=== PATIENT | male | born 1995 | race Two or more races ===

== ENCOUNTER 2022-01-21 10:21 | Emergency (ER) | payer SELFPAY ==
[~2022-01-21] VITALS: Ht 160 cm; Wt 63.0 kg
[2022-01-21] MEDS ORDERED: ONDANSETRON HCL 4MG/2ML INJ IV STA (10:27)
[2022-01-21] MEDS ORDERED: MORPHINE SULFATE 4 MG/ML CPJ (NOT FOR IM USE) IV STA (10:27)
[2022-01-21] MEDS ORDERED: AMOXICILLIN/POTASSIUM CLAVULANATE 875/125MG TAB PO ONE (12:30)
[2022-01-21] MEDS ORDERED: HYDROCODONE/ACETAMINOPHEN 5/325MG TABLET PO ONE (12:30)
[2022-01-21] MEDS ORDERED: AMOX-424 MT (12:31)
[2022-01-21] MEDS ORDERED: HYDR-4001 MT (12:31)
[2022-01-21 13:46] VITALS: BP 134/83
== END 2022-01-21 13:47 | disposition home or self-care (01) ==
LOC: ER 11:05
DX: S02.602A Fracture of unspecified part of body of left mandible, initial encounter for closed fracture (principal); S02.642A Fracture of ramus of left mandible, initial encounter for closed fracture; S00.03XA Contusion of scalp, initial encounter; Y04.0XXA Assault by unarmed brawl or fight, initial encounter; Y93.89 Activity, other specified; Y92.481 Parking lot as the place of occurrence of the external cause
CPT/HCPCS: 70450; 70486; 72125; 96374; 96375; 99284; J2270; J2405